=== PATIENT | female | born 1970 | race Caucasian/White ===

== ENCOUNTER → 2021-05-07 14:16 | Outpatient (BNVA) | payer BC, SELFPAY | PROVIDERS: Family Provider Family Medicine; Visit Provider Podiatrist Foot & Ankle Surgery | DX: M19.072 Primary osteoarthritis, left ankle and foot (principal) | CPT/HCPCS: 73630 ==

== ENCOUNTER 2021-08-01 08:06 | Outpatient (CLI) | payer BC, SELFPAY ==
--- NOTE | 2021-08-01 08:20 | MM_ITS ---
WS: [email or web address] SCREENING TOMOSYNTHESIS DIGITAL MAMMOGRAM WITH CAD HISTORY: SCREENING COMPARISON: None available. Bilateral CC and MLO views submitted. Computer aided detection analyzed. Breast composition: The breasts are heterogeneously dense, which may obscure small masses. Dense fibr oglandular density in the upper-outer quadrant of the RIGHT breast. On the CC tomosynthesis there are partially obscured asymmetries measuring 10 to 12 mm near 12:00 and 11:00 in the mid to posterior br east. These are less well visualized on the lateral projection. The LEFT breast is negative. MM/[place] [id number] IMPRESSION: BI-RADS: 0-Incomplete: Need additional imaging evaluation FOLLOW UP: Need Additional Imaging RIGHT breast: Spot compression views (CC and MLO). True ML. Ultrasound to follo w if abnormality persists.
== END 2021-08-01 08:07 | disposition home or self-care (01) ==
LOC: RAD 08:09
PROVIDERS: Visit Provider Family Medicine
DX: Z12.31 Encounter for screening mammogram for malignant neoplasm of breast (principal); R92.2 Inconclusive mammogram
CPT/HCPCS: 77063; 77067

== ENCOUNTER 2021-08-13 13:01 | Outpatient (CLI) | payer BC, SELFPAY ==
--- NOTE | 2021-08-13 13:15 | MM_ITS ---
WS: [email or web address] ADDITIONAL VIEWS RIGHT MAMMOGRAM WITH DIGITAL BREAST TOMOSYNTHESIS. RIGHT BREAST ULTRASOUND HISTORY: ABNORMAL MAMMO COMPARISON: 08/01/2021 RIGHT MAMMOGRAM: Spot compression views and true ML with digital breast tomosynthesis and SM. Spot compression views upper outer quadrant of the RIGHT breast demonstrate no persistent abnormality . There is dense fibroglandular tissue obscuring portions of the parenchyma. Ultrasound to follow. RIGHT BREAST ULTRASOUND 2-D and color Doppler imaging submitted. Ultrasound is directed to the upper outer quadrant of the RIGHT breast. No mass or distortion or shad owing is identified. MM/[place] [id number] IMPRESSION: BI-RADS: 2-Benign FOLLOW UP: 1 Year Follow-up
== END 2021-08-13 13:02 | disposition home or self-care (01) ==
PROVIDERS: PCP Family Medicine; Visit Provider Family Medicine
DX: R92.8 Other abnormal and inconclusive findings on diagnostic imaging of breast (principal)
CPT/HCPCS: 76642; 77061

== ENCOUNTER 2022-01-26 10:14 | Day surgery (SDC) | payer BC, SELFPAY ==
[2022-01-22 13:57] VITALS: BMI 22.4
[2022-01-26 10:38] VITALS: BP 129/76; PULSE 99; RESP 18; TEMP 36.2; O2SAT 96
[2022-01-26] MEDS: sodium chloride 0.9% 1,000 ML 30 ML IV (10:47)
--- NOTE | 2022-01-26 11:40 | P.ANESASSM_ITS ---
Pre-Anesthetic Assessment Height/Weight: Height 1.83 m Weight 74.843 kg Temp Pulse Resp BP Pulse Ox O2 Del Method 97.1 F L 99 18 129/76 96 01/26/22 10:38 01/26/22 10:38 01/26/22 10:38 01/26/22 10:38 01/26/22 10:38 01/26/22 10:38 Preop Diagnosis: Change in bowel habit Operation Date: 01/26/22 11:30 Proposed Procedures p Colonoscopy 20414,R19.4(Not Applicable) - Vikas Benjamin MD Was Beta Reece taken within 24 hours: N/A Was Clonidine taken within 24 hours: N/A Last intake: Intake Last Liquid Date 01/25/22 Last Liquid Time 22:00 Last Solid Date 01/24/22 Last Solid Time 20:00 Last Intake: 22:00 Social No alcohol and No tobacco Exam alert, oriented x 3, clear to auscultation bilaterally and regular rate & rhythm Airway Submandibular: within normal limits Cervical ROM: within normal limits Mallampati: Class II Pulmonary None reported CV/HEM None reported None reported Hepatic None reported GI None reported Metabolic None reported Musc/skel None reported Neuropsych Depression Anesthetic Plan ASA status: 2 Anesthesia: MAC Risk of > 500 ml blood loss (7ml/kg in children): No Medications/Allergies Home Medications Medication Instructions Recorded Confirmed Last Taken Type tolterodine 4 mg capsule,extended 4 mg PO DAILY 05/07/21 01/26/22 01/26/22 History release 24 hr venlafaxine 150 mg 150 mg PO DAILY 05/07/21 01/26/22 01/26/22 History capsule,extended release 24 hr peg 3350-electrolytes 236 240 ml PO Q10M #4,000 mL 01/21/22 01/26/22 01/26/22 Rx gram-22.74 gram-6.74 gram-5.86 gram solution (Golytely) Allergies Allergy/AdvReac Type Severity Reaction Status Date / Time Beef Containing Products Allergy Mild Hives Verified 01/26/22 10:36 Pork/Porcine Containing Allergy Mild Hives Verified 01/26/22 10:36 Products Alpha-Gal Allergy hives/throat Verified 01/26/22 10:36 (Cejnhyzll-Uokfx-6,3-Gala close [facility] Anesthesia Social History Smoking and tobacco status: never smoked Second hand smoke exposure: No Smoking risk assessment/counseling performed?: No Alcohol intake: never Desire information about alcohol rehabilitation?: No Counseling given: No Desire information about substance/drug rehabilitation?: No Counseling given: No Data Anesthesia Cardiac Studies: No Data to Display
--- NOTE | 2022-01-26 11:44 | W.PM.OPSUD ---
Surgery/Procedure H&P Update DATE OF PROCEDURE: January 26, 2022 DATE H&P PERFORMED: 01/21/22 H&P UPDATE INFORMATION: I have reviewed H&P completed within last 30 days, I have examined patient prior to procedure and No changes to prior documentation PREOP DIAGNOSIS: Change in bowel habit PRIMARY INDICATION FOR PROCEDURE: The same PLANNED PROCEDURE: Operation Date: 01/26/22 11:30 Proposed Procedures p Colonoscopy 26243,R19.4(Not Applicable) - Vikas Benjamin MD
[2022-01-26 12:30] VITALS: BP 171/74; PULSE 79; RESP 16; O2SAT 99
[2022-01-26 12:46] VITALS: BP 123/69; PULSE 82; RESP 16; O2SAT 97
--- NOTE | 2022-01-26 13:47 | ANE.PACU2 ---
Inpatient post-anesthesia follow up: Airway intact: Yes Vital signs: Temperature 97.1 F Pulse Rate 82 Respiratory Rate 16 Blood Pressure 123/69 Pulse Oximetry 97 Oxygen Delivery Me thod Room Air Oxygen Flow Rate Fraction of Inspir ed Oxygen Hydration adequate: Yes Nausea and vomiting: No Pain level: 1 Mental status: Baseline
== END 2022-01-26 13:03 | disposition home or self-care (01) ==
PROVIDERS: PCP Family Medicine; Visit Provider Surgery
PROC: 0DJD8ZZ Inspection of Lower Intestinal Tract, Via Natural or Artificial Opening Endoscopic (ICD-10-PCS; CPT 45378; principal; 2022-01-26 11:30)
DX: R19.4 Change in bowel habit (principal)
CPT/HCPCS: 45378; J7030

== ENCOUNTER 2022-01-30 10:54 | Outpatient (CLI) | payer BC, SELFPAY ==
--- NOTE | 2022-01-30 11:00 | US_ITS ---
WS: [email or web address] Gallbladder and right upper quadrant ultrasound, 01/30/2022 Clinical Data: change in bowel habits Comparison: Right upper quadrant, gallbladder ultrasound, 02/01/2011. Findings: The gallbladder shows numerous stones. The wall measures 0.4 cm with no pericholecystic fluid. The common bile duct is 0.8 cm and there are no intrahepatic ductal abnormalities. Liver shows no cysts, masses or dilated intrahepatic ducts. Portal vein shows normal flow. There are 2 small echogenic foci in the left lobe of the liver of unknown significance. The pancreas is partly obscured by overlying bowel gas but no cyst, pseudocyst, or evidence of pancre atitis is noted. Right kidney measures 11.9 cm and no cyst, masses or hydronephrosis can be seen. The aorta and inferior vena cava show no vascular abnormalities. US/US gall bladder [id number] Impression: 1. Cholelithiasis. 2. 2 small echogenic foci left lobe of liver of unknown significance.
== END 2022-01-30 10:55 | disposition home or self-care (01) ==
LOC: RAD 10:57
PROVIDERS: PCP Family Medicine; Visit Provider Surgery
DX: R19.4 Change in bowel habit (principal); K80.20 Calculus of gallbladder without cholecystitis without obstruction
CPT/HCPCS: 76705

== ENCOUNTER 2023-12-31 10:03 | Outpatient (CLI) | payer OTHER, SELFPAY ==
--- NOTE | 2023-12-31 10:07 | CTR_ITS ---
PROCEDURE INFORMATION: Exam: CT Maxillofacial Without Contrast, Sinus Exam date and time: 12/31/2023 10:23 AM Age: 53 years old Clinical indication: Face pain; Patient HX: Chronic sinusitis, right ear pressure and tinnitis, R facial pressure since October TECHNIQUE: Imaging protocol: CT Maxillofacial without contrast. Focus on the sinuses. Radiation optimization: All CT scans at this facility use at least one of these dose optimization techniques: automated exposure control; mA and/or kV adjustment per patient size (includes targeted exams where dose is matched to clinical indication); or iterative reconstruction. COMPARISON: No relevant prior studies available. RADIATION DOSE METRICS: Total DLP (mGy-cm): 397.61 FINDINGS: Frontal sinuses: The frontal sinus is aplastic. Ethmoid sinuses: There is a 4.3 x 2.4 x 1.9 cm mass in the posterior right ethmoid sinus, right sphenoid sinus, and superior right nasal cavity. Erosion of the ethmoid air cell septa in the anterior wall of the right sphenoid sinus is present. The mass is nonspecific, but could represent a mucocele, polyp, papilloma, or neoplasm. Direct visualization is recommended. Sphenoid sinuses: The left sphenoid sinus is clear. Maxillary sinuses: There is mild mucosal thickening in the maxillary sinuses. There are no air-fluid levels. The ostiomeatal units are patent. Nasal cavity: Mild leftward bowing of the nasal septum is present. Orbital cavities: Orbits are normal. Globes are unremarkable. Soft tissues: Unremarkable. CT/CT sinus wo con* [id number] IMPRESSION: There is a 4.3 x 2.4 x 1.9 cm mass in the posterior right ethmoid sinus, right sphenoid sinus, and superior right nasal cavity. Erosion of the ethmoid air cell septa in the anterior wall of the right sphenoid sinus is present. The mass is nonspecific, but could represent a mucocele, polyp, papilloma, or neoplasm. Direct visualization is recommended.
== END 2023-12-31 10:04 | disposition home or self-care (01) ==
LOC: RAD 10:04
PROVIDERS: PCP Family Medicine; Visit Provider Family Medicine
DX: J32.9 Chronic sinusitis, unspecified (principal); J34.89 Other specified disorders of nose and nasal sinuses
CPT/HCPCS: 70486

== ENCOUNTER 2024-01-25 17:06 | Outpatient (CLI) | payer OTHER, SELFPAY ==
--- NOTE | 2024-01-25 17:11 | MRR_ITS ---
PROCEDURE INFORMATION: Exam: MR Head Without and With Contrast Exam date and time: 01/25/2024 5:32 PM Age: 53 years old Clinical indication: Condition or disease and abnormal findings; Mass, lump, or localized swelling of head; Patient HX: Chronic sinusitis, mass in sinus, planning for surgery in am TECHNIQUE: Imaging protocol: Magnetic resonance imaging of the head without and with contrast. Contrast material: MULITHANCE; Contrast volume: 14 ml; Contrast route: INTRAVENOUS (IV); COMPARISON: CT sinus wo con* [id number] 12/31/2023 10:23 AM FINDINGS: Limitations: Suboptimal evaluation of multiple sequences secondary to patient motion. Brain: [No acute infarct. No intracranial hemorrhage. No significant white matter disease. No abnormal parenchymal, leptomeningeal or dural enhancement. Cerebral ventricles: Normal. No ventriculomegaly. Bones: Unremarkable. Paranasal sinuses: Redemonstration of an expansile lesion involving the mid to posterior right ethmoid air cells and right sphenoid sinus. This lesion demonstrates low T2 signal, intermediate T1 signal, and no significant central enhancement, however mild rim enhancement cannot be excluded. Mastoid air cells: Small amount of fluid in the inferior mastoid air cells. Orbital cavities: Orbits and globes are intact. Soft tissues: Unremarkable. MR/MR head wo/w con [id number] IMPRESSION: 1. No acute intracranial abnormality. 2. Redemonstration of expansile lesion involving the right ethmoid and sphenoid sinuses and may represent a mucocele. Other etiologies cannot be entirely excluded. Recommend ENT consultation and correlation with direct visualization.
[2024-01-25] MEDS: gadobenate dimeglumine 20 mL vial 14 ML IV (17:36)
== END 2024-01-25 17:07 | disposition home or self-care (01) ==
LOC: RAD 17:07
PROVIDERS: PCP Family Medicine; Visit Provider Specialist
DX: J32.3 Chronic sphenoidal sinusitis (principal); J32.2 Chronic ethmoidal sinusitis
CPT/HCPCS: 70553

== ENCOUNTER 2024-03-14 14:57 | Outpatient (CLI) | payer OTHER, SELFPAY ==
--- NOTE | 2024-03-14 15:15 | MR_ITS ---
WS: [email or web address] MRI HEAD WITH CONTRAST WITH ATTENTION TO THE INTERNAL AUDITORY CANALS TECHNIQUE: Sagittal T1, T2 axial, T2 axial flair, axial susceptibility weighted imaging, axial diffus ion weighted images, and coronal T2 images were obtained. Pre and post T1 axial and post T1 coronal i mages. ADC and FSPGR images. Post gadolinium images with attention to the internal auditory canals. A xial fiesta imaging. CLINICAL INFORMATION: H93.8X3 - Other specified disorders of ear, bilateral COMPARISON: MRI 01/25/2024 FINDINGS: No evidence of restricted diffusion to suggest acute ischemia. Ventricular system and basal cisterns are patent. No suspicious intracranial signal abnormalities. Normal iyer-white differentiation. Normal posterior fossa. Normal vascular flow voids at the skull base. No extra-axial fluid collections. No mass of mass or mass effect. Paranasal sinuses are well aerated. Recent postoperative resection of the previously described RIGHT nasal polypoid lesion. Paranasal sinuses appear well aerated. Mastoid air cells are well aerated. Normal posterior nasopharynx. No hemosiderin on the susceptibly weighted images. Normal optic chiasm and pituitary infundibulum. Temporal lobes hippocampal formations are normal in appearance. Proximal 7th and 8th cranial nerves are normal in appearance. Normal trigeminal nerve root entry zone s bilaterally. No evidence of enhancing IAC or CP angle mass. No abnormal intracranial enhancement. N ormal dural venous sinuses. MR/MR iac's wo/w con* [id number] IMPRESSION: 1. No evidence of enhancing IAC or CP angle mass. Normal trigeminal nerve root entry zones. 2. No suspicious intracranial signal abnormalities. 3. Reported recent postoperative changes resection of the RIGHT expansile post erior ethmoid lesion. 4. No other significant changes.
--- NOTE | 2024-03-14 16:00 | MR_ITS ---
WS: [email or web address] MRA HEAD TECHNIQUE: Axial 3-D TOF images obtained with axial images and axial, sagittal, and coronal 2-D refor matted images. CLINICAL INFORMATION: R51.9 - Headache, unspecified COMPARISON: None. FINDINGS: Distal vertebral arteries are patent. Basilar artery is patent. Normal vascularity to the [employer] territo ry bilaterally. Both ICAs are patent at the skull base. Normal vascularity to the [place] and MCA territories bilaterally . No evidence of proximal flow-limiting stenosis or aneurysm. MR/MR angio head wo con [id number] IMPRESSION: 1. Unremarkable intracranial MRA.
--- NOTE | 2024-03-14 16:15 | MR_ITS ---
WS: [email or web address] MRA CAROTID WITHOUT AND WITH GADOLINIUM ENHANCEMENT TECHNIQUE: Axial 2-D TOF and gadolinium bolus images obtained with axial images and axial, sagittal, and coronal 2-D reformatted images. CLINICAL INFORMATION: H53.8 - Other visual disturbances COMPARISON: None. FINDINGS: RIGHT: RIGHT common carotid artery is patent. No significant RIGHT ICA stenosis. RIGHT ICA is patent to the skull base. LEFT: LEFT common carotid artery is patent. No significant LEFT ICA stenosis. LEFT ICA is patent to t he skull base. Codominant and patent vertebral arteries bilaterally. Proximal subclavian arteries are patent. Normal branching aortic arch anatomy. MR/MR angio neck w con* [id number] IMPRESSION: Normal neck MRA.
[2024-03-14] MEDS: gadobenate dimeglumine 20 mL vial 14 ML IV (16:26)
== END 2024-03-14 14:58 | disposition home or self-care (01) ==
LOC: RAD 14:57
PROVIDERS: PCP Family Medicine; Visit Provider Psychiatry & Neurology Neurology
DX: R51.9 Headache, unspecified (principal); H53.8 Other visual disturbances; H92.01 Otalgia, right ear; H93.19 Tinnitus, unspecified ear; H93.8X3 Other specified disorders of ear, bilateral; H91.93 Unspecified hearing loss, bilateral; Z98.890 Other specified postprocedural states
CPT/HCPCS: 70544; 70548; 70553; A9577

== ENCOUNTER 2024-04-06 07:07 | Outpatient (CLI) | payer OTHER, SELFPAY ==
--- NOTE | 2024-04-06 07:14 | MR_ITS ---
WS: [email or web address] MRI NECK WITH AND WITHOUT CONTRAST. COMPARISON: 03/14/2024, sinus CT 12/31/2023 Multiplanar, multisequence imaging is performed with and without contrast. MultiHance 14 mL. Previously described expansile mass centered in the RIGHT ethmoid and sphenoid sinus has been removed . No residual mass or enhancement. Paranasal sinuses are well aerated. Normal appearance of the tongu e base, larynx and subglottic airway. Parapharyngeal fat is well-preserved. Small bilateral posterior cervical chain lymph nodes. These are not enlarged. No adenopathy or necrot ic lymph nodes. Orbits and globes are negative. Upper lung little is clear. MR/MR orbit face neck wo/w* [id number] IMPRESSION: 1. Interval resection of the RIGHT ethmoid/sphenoid sinus mass. 2. No residual soft tissue or abnormal enhancement. 3. No air-fluid levels in the sinuses. 4. Small posterior cervical chain lymph nodes. No lymphadenopathy.
[2024-04-06] MEDS: gadobenate dimeglumine 20 mL vial IV (07:26)
== END 2024-04-06 07:08 | disposition home or self-care (01) ==
LOC: RAD 07:09
PROVIDERS: PCP Family Medicine; Visit Provider Specialist
DX: J32.9 Chronic sinusitis, unspecified (principal); J32.3 Chronic sphenoidal sinusitis; J34.1 Cyst and mucocele of nose and nasal sinus; H92.01 Otalgia, right ear; J32.8 Other chronic sinusitis; H69.83 Other specified disorders of Eustachian tube, bilateral; R59.0 Localized enlarged lymph nodes
CPT/HCPCS: 70543

== ENCOUNTER 2024-06-29 14:39 | Outpatient (CLI) | payer OTHER, SELFPAY ==
--- NOTE | 2024-06-29 14:48 | CT_ITS ---
WS: [email or web address] CT temporal bone wo con* [id number] REASON FOR EXAM: OTALGIA, R EAR/PRESSURE SENSATION IN R EAR IV CONTRAST ADMINISTERED: None. TECHNIQUE: Thin section axial imaging of the base of the skull with bone algorithm with reconstructions in the coronal and sagittal plane. TOTAL EXAM DLP: 340.[address] scans at [facility] use at least one of these dose optimization techniques: automated exposure control; mA and/or kV adjustment per patient size (includes targeted exams where dose is matched to clinical indication); or iterative reconstruction. FINDINGS: Bilaterally, the mastoids are clear and well aerated. Bilaterally the internal and external auditory canals are intact without soft tissue mass. Tympanic membranes are normal bilaterally. No soft tissue mass within the middle ear. The vestibule, semicircular canals, cochlea, and middle ear ossicles are normal bilaterally. The posterior nasal and oropharynx appear normal. CT/CT temporal bone wo con* [id number] IMPRESSION: No significant abnormality.
== END 2024-06-29 14:40 | disposition home or self-care (01) ==
LOC: RAD 14:42
PROVIDERS: PCP Family Medicine; Visit Provider Otolaryngology
DX: H92.01 Otalgia, right ear (principal); H93.8X1 Other specified disorders of right ear
CPT/HCPCS: 70480

== ENCOUNTER 2025-01-22 08:56 | Outpatient (CLI) | payer OTHER, SELFPAY ==
--- NOTE | 2025-01-22 09:00 | FL_ITS ---
WS: [email or web address] Exam: FL barium swallow modifd [id number] Date/Time of Exam: 01/22/2025 9:02 AM Reason For Exam: Other dysphagia Fluoroscopy time: 2min [id number] minutes # of spot films: Modified barium swallow was performed in conjunction with the speech therapy service. Oral pharyngeal phase of swallowing was normal. The patient tolerated all consistencies of barium mixture foodstuffs without aspiration or penetration. The patient ingested a barium tablet without difficulty or complication. IMPRESSION1. Unremarkable modified barium swallow study. No aspiration or penetration observed. A separate report and recommendations will follow from the speech therapy service.
== END 2025-01-22 08:57 | disposition home or self-care (01) ==
LOC: RAD 08:57
PROVIDERS: PCP Family Medicine; Visit Provider Family Medicine
DX: R13.19 Other dysphagia (principal)
CPT/HCPCS: 74230; 92611

== ENCOUNTER 2025-02-26 14:31 | Outpatient (CLI) | payer OTHER, SELFPAY ==
--- NOTE | 2025-02-26 14:39 | USCV_ITS ---
Velma Florian Age: 54 Gender: F : 1970 Exam Date: 02/26/2025 14:53 Ordering Phys: Chase Adam MD Technologist: [place] [facility] [place]: cp sob BP: 120 / 80 HR: 78 Rhythm: Sinus Technical Quality: Adequate MEASUREMENTS (Male / Female) Normal Values 2D ECHO LV Diastolic Diameter PLAX 4.7 cm 4.2 - 5.9 / 3.9 - 5.3 cm IVS Diastolic Thickness 1.0 cm 0.6 - 1.0 / 0.6 - 0.9 cm IVS Systolic Thickness 1.5 cm LVPW Diastolic Thickness 1.1 cm 0.6 - 1.0 / 0.6 - 0.9 cm LVPW Systolic Thickness 1.4 cm LVOT Diameter 2.0 cm LV Ejection Fraction 2D Teich 74.7 % LV Ejection Fraction MOD 4C 68.8 % LV Ejection Fraction MOD 2C 71.5 % LV Ejection Fraction 2C AL 72.0 % LA Diameter 3.4 cm RA Systolic Volume 4C AL 21.0 ml RA Systolic Volume 4C MOD 20.6 ml LA Sys Volume AL 41.4 cm cubed LA Sys Volume Index AL 22.8 cm cubed/m squared Aorta at Sinotubular Diameter 2.4 cm IVC Diameter 1.8 cm M-MODE LA Ao Ratio MM 1.4 AV Cusp Separation MM 2.0 cm DOPPLER AV Peak Velocity 161.0 cm/s LVOT Peak Velocity 100.0 cm/s AV Area Cont Eq vti 2.2 cm squared AV Area Cont Eq pk 2.0 cm squared MV Peak Velocity 134.0 cm/s MV Area PHT 5.5 cm squared Mitral E to A Ratio 1.2 TV Peak Velocity 232.0 cm/s TR Peak Velocity 262.0 cm/s TR Peak Gradient 27.5 mmHg TV Peak E Velocity 97.0 cm/s PV Peak Velocity 117.0 cm/s FINDINGS Left Ventricle Normal left ventricular size and systolic function, EF 71%.no regional wall motion abnormalities. Right Ventricle Normal right ventricular size and systolic function. Right Atrium Normal right atrial size. Left Atrium Normal left atrial size. IA Septum Normal appearance of the interatrial septum. Mitral Valve No gross abnormalities noted Aortic Valve Trace to mild aortic valve regurgitation. Tricuspid Valve Mild tricuspid valve regurgitation. Estimated pulmonary artery peak systolic pressure 31 mmHg Pulmonic Valve No gross abnormalities noted Pericardium No pericardial effusion. Aorta Normal aortic annulus size. IVC Normal inferior vena cava. CONCLUSIONS Normal left ventricular size and systolic function, EF 71%. No regional wall motion abnormalities. Trace to mild aortic valve regurgitation. Mild tricuspid valve regurgitation. Estimated pulmonary artery peak systolic pressure 31 mmHg. There is no pericardial effusion. There are no intracardiac masses. No similar previous studies are available for comparison Dr Tamy Zambrano MD [facility] (Electronically Signed) Final Date: 27 February 2025 08:19 S
== END 2025-02-26 14:32 | disposition home or self-care (01) ==
LOC: RAD 14:32
PROVIDERS: PCP Family Medicine; Visit Provider Family Medicine
DX: Q87.40 Marfan syndrome, unspecified (principal); R07.9 Chest pain, unspecified; R06.02 Shortness of breath; I35.1 Nonrheumatic aortic (valve) insufficiency; I36.1 Nonrheumatic tricuspid (valve) insufficiency
CPT/HCPCS: 93306